=== PATIENT | female | born 1965 ===

== ENCOUNTER → 2020-04-27 08:00 | Outpatient (CLI) | payer OTHER ==
[~2020-04-27] VITALS: Ht 157.5 cm; Wt 78.0 kg
[~2020-04-27 08:00] MED LIST: ATACAND HCT 321 EACH PO; CLONAZEPAM0.5 MG PO; FENOFIBRATE150 MG PO; INTESTIN PO; LEVA; LEVSIN0.125 MG; LIPITOR40 M1 PO; PEPCI PO; PLAVIX75 MG PO; PROTONIX40 MG PO; RENAL PO; SYMB
== END | disposition home or self-care (01) ==
LOC: RAD 08:00 → LAB 08:00 → RECOVERY 05-04 07:00 → EDSTATUS 05-04 09:30 → RECOVERY 05-04 09:30
PROVIDERS: ATTEND Surgery
DX: N81.6 Rectocele (principal); K59.09 Other constipation; Z03.818 Encounter for observation for suspected exposure to other biological agents ruled out; I10 Essential (primary) hypertension

== ENCOUNTER 2020-06-13 14:30 | Inpatient (IN) | payer OTHER ==
[~2020-06-13] VITALS: Ht 157.5 cm; Wt 74.8 kg
[2020-06-15] MEDS ORDERED: PROTONIX40 MG PO (15:12)
[2020-06-15] MEDS ORDERED: SINGULAIR10 MG PO (15:13)
[2020-06-15] MEDS ORDERED: PEPCID PO (15:13)
[2020-06-15] MEDS ORDERED: LIPITOR40 M1 PO (15:14)
[2020-06-15] MEDS ORDERED: FENOFIBRATE150 MG PO (15:14)
[2020-06-20] MEDS ORDERED: PEPCID AC10 MG (08:00)
[2020-06-20] MEDS ORDERED: INTESTINEX680 M1 (08:00)
[2020-06-21] MEDS ORDERED: PERCOCET 5-3251 EACH PO (08:34)
[2020-06-21] MEDS ORDERED: NORFLEX100MG PO (08:36)
== END 2020-06-21 16:23 | disposition home or self-care (01) | DRG 331 ==
LOC: ADM 14:30 → EDSTATUS 06-15 12:15 → SURH 06-20 06:20 → O/R 06-20 06:20 → SURH 06-20 11:28 → O/R 06-20 12:15 → SURH 06-21 16:23
PROVIDERS: ADMIT Surgery; ATTEND Surgery
PROC: 0DQP7ZZ Repair Rectum, Via Natural or Artificial Opening (ICD-10-PCS; principal; 2020-06-20 12:45)
DX: K62.3 Rectal prolapse (principal); N81.6 Rectocele; K59.09 Other constipation

== ENCOUNTER 2021-02-04 05:04 | Emergency (ER) | payer OTHER ==
[~2021-02-04] VITALS: Ht 157.5 cm; Wt 66.7 kg
[~2021-02-04 05:04] MED LIST changes: +INTESTINEX680 M1; +NORFLEX100MG PO; +PEPCID AC10 MG; +PEPCID PO; +PERCOCET 5-3251 EACH PO; +SINGULAIR10 MG PO
[2021-02-04] MEDS ORDERED: CIPRO500 MG PO (17:18)
[2021-02-04] MEDS ORDERED: DOLOGESIC 500-1 EACH PO (17:18)
[2021-02-04] MEDS ORDERED: NORFLEX100MG PO (17:22)
== END 2021-02-04 18:30 | disposition home or self-care (01) ==
LOC: ER 05:04
DX: R10.32 Left lower quadrant pain (principal)